=== PATIENT | female | born 2005 | race Hispanic/Latino ===

== ENCOUNTER 2024-11-01 09:18 | Emergency (ER) | payer SELFPAY ==
[~2024-11-01] VITALS: Ht 172.7 cm; Wt 102.1 kg
--- NOTE | 2024-11-01 10:08 | ERN ---
ED Note History of Present Illness Stated Complaint: ANXIETY Chief Complaint: Anxiety/Panic Attack Time Seen by MD: 09:23 Dictation: 19-year-old female with a history of type 2 diabetes on metformin presents to the ED for evaluation of shortness a breath onset [employer]. Patient reports fever, throat pain, body aches and headache, but denies any other associated symptoms at this time. Patient states it hurts to move."Patient mentioned she took NyQuil last night. Allergies: Coded Allergies: No Known Drug Allergies (Unverified Allergy, Intermediate, 11/01/24) Home Meds Active Scripts Naproxen (Naproxen) 250 Mg Tablet, 250 MG PO BID for 5 Days, #10 TAB Prov:NADIA MARTINEZ MD 11/01/24 Review of System Dictation Constitutional: Positive for body aches, fever Negative for chills and weight loss Eyes: Negative for injury, pain,redness, and discharge ENT: Positive for throat pain Negative for injury or swelling Cardiovascular: Negative for chest pain, palpitations, and edema Respiratory: Positive for shortness of breath negative for cough, and wheezing, Abdomen/GI: Negative for abdominal pain, nausea, vomiting, diarrhea, and constipation Back: Negative for injury and pain : Negative for injury, bleeding and discharge MS/Extremity: Negative for injury and deformity Skin: Negative for rash, and discoloration Neuro: Positive for headache Negative for weakness, numbness, tingling, and seizure Psych: Negative for suicide ideation, homicidal ideation, and hallucinations Initial Vital Sign VS Vital Signs Date Time Temp Pulse Resp B/P (MAP) Pulse Ox O2 Delivery O2 Flow Rate FiO2 11/01/24 12:05 98.8 89 18 138/65 99 Room Air* 0 21 Physical Exam Dictation General: awake, alert, NAD Head/Face: Normocephalic, atraumatic Eyes: PERRL, EOMI, vision at baseline ENT: oral cavity clear, TMs clear, nasal congestion Neck: Trachea midline, supple, no nuchal rigidity Cardiovascular: RRR, normal S1/S2, No MRGs, no JVD Respiratory: CTAB, no respiratory distress, No rales or wheezes Abdomen: Soft, non-tender, non-distended, normal bowel sounds, no guarding or rebound. Skin: Warm, dry, normal turgor, no rash MS/Extremity: Pulses equal, no cyanosis, neurovascular intact, FROM Neuro: COAx4, GCS 15, strength 5/5, CN 2-12 intact, normal cerebellar exam, normal gait, Psych: Normal behavior, mood, and affect normal Results (Laboratory/Radiology) Laboratory/Radiology Laboratory Tests Test 11/01/24 10:25 11/01/24 10:52 White Blood Count 8.2 K/uL (4.8-10.8) Red Blood Count 4.83 MIL/uL (4.00-5.50) Hemoglobin 13.4 g/dL (12.0-16.0) Hematocrit 41.5 % (36-48) Mean Corpuscular Volume 85.9 fL (80-100) Mean Corpuscular Hemoglobin 27.7 pg (27.0-33.0) Mean Corpuscular Hemoglobin Concent 32.3 g/dL (32.0-36.0) Red Cell Distribution Width 14.2 % (11.0-15.5) Platelet Count 194 K/uL (130-400) Mean Platelet Volume 11.9 fL (7.5-10.5) H Immature Granulocyte % (Auto) 0.4 % (0-1) Neutrophils (%) (Auto) 62.5 % (40.0-77.0) Lymphocytes (%) (Auto) 27.0 % (21.0-51.0) Monocytes (%) (Auto) 8.6 % (3.0-13.0) Eosinophils (%) (Auto) 1.0 % (0.0-8.0) Basophils (%) (Auto) 0.5 % (0.0-5.0) Neutrophils # (Auto) 5.1 K/uL (1.8-7.7) Lymphocytes # (Auto) 2.2 K/uL (1.0-4.8) Monocytes # (Auto) 0.7 K/uL (0.1-1.0) Eosinophils # (Auto) 0.08 K/uL (0.00-0.70) Basophils # (Auto) 0.04 K/uL (0.00-0.20) Absolute Immature Granulocyte (auto 0.03 K/uL (0-1) Nucleated Red Blood Cells 0.0 % (0.0-0.19) Sodium Level 138 mmol/L (136-145) Potassium Level 3.7 mmol/L (3.5-5.1) Chloride Level 103 mmol/L (101-111) Carbon Dioxide Level 28 mmol/L (21-32) Blood Urea Nitrogen 6 mg/dL (7-18) L Creatinine 0.8 mg/dL (0.5-1.0) Glomerular Filtration Rate Calc 108 mL/min (>90) Random Glucose 116 mg/dL (70-105) H Total Calcium 8.4 mg/dL (8.5-10.1) L Influenza Type A Antigen Negative For Type A Influenza Type B Antigen Negative For Type B SARS-CoV-2 Antigen (Rapid) PRESUMPTIVE NEGATIVE Group A Streptococcus Rapid negative (NEGATIVE) Labs Reviewed?: Yes X-RAY Comment: REASON: fever ORDERING PHYSICIAN: NADIA MARTINEZ MD PROCEDURE: CXR1VW - CHEST 1VW CHEST 1VW REASON: fever COMPARISON: None. FINDINGS: Single view of the chest was obtained. Lungs are clear. Heart size is normal. There is no pulmonary vascular congestion. Mediastinum and bony thorax appear unremarkable. IMPRESSION: 1. Normal single view chest x-ray. DICTATED BY: MADDIE SYKES MD DATE: 11/01/24 1127 ED Course ED Course Orders Procedure Category Date Status Time Covid19 (Sars Antigen LAB 11/01/24 Complete Rapid) 09:57 Influenza Type A & B, LAB 11/01/24 Complete Rapid 09:57 Chest 1vw RAD 11/01/24 Resulted 09:57 0.9%Nacl 1000ml (Ns PHA 11/01/24 Complete 1000ml) 10:00 Ketorolac PHA 11/01/24 Complete Tromethamine 15mg/Ml 10:00 Cbc With Differential LAB 11/01/24 Complete 09:57 Basic Metabolic Panel LAB 11/01/24 Complete 09:57 Rapid (Group A Strep) LAB 11/01/24 Complete 10:53 Current Medications Medications (Trade) Dose Ordered Sig/Gerardo Route PRN Reason Start Time Stop Time Status Last Admin Dose Admin Ketorolac Tromethamine (toRADol) 15 mg ONCE ONCE IV 11/01/24 10:00 11/01/24 10:01 DC 11/01/24 12:14 Sodium Chloride 1,000 ml @ 0 mls/hr ONCE ONCE IV 11/01/24 10:00 11/01/24 10:01 DC 11/01/24 12:14 Vital Signs Date Time Temp Pulse Resp B/P (MAP) Pulse Ox O2 Delivery O2 Flow Rate FiO2 11/01/24 12:11 98.8 88 20 161/62 100 Room Air 11/01/24 12:05 98.8 89 18 138/65 99 Room Air* 0 21 Medical Decision Making MDM MDM: Differential diagnosis: Viral syndrome, influenza, URI Risk of complication and/or morbidity or mortality of patient management: None Medications-Per medication reconciliation Need for hospitalization: Patient does not meet criteria for hospitalization. Need for emergency major/minor surgery: No There are no social concerns with this patient. Prescription drug management Prescriptions will include symptomatic care I independently interpreted the test that were performed, results were reviewed by me and considered findings on radiology if ordered. Medical management and examination interpretation discussions were had by me with other qualified healthcare professionals as indicated for the patient's care. DX & DISP Disposition: Discharge Departure Impression: Primary Impression: Acute URI Condition: Stable Scripts Naproxen (Naproxen) 250 Mg Tablet 250 MG PO BID for 5 Days, #10 TAB Prov: NADIA MARTINEZ MD 11/01/24 Referrals: SELF,REFERRAL (PCP) NADIA MARTINEZ MD Nov 01, 2024 10:08
[2024-11-01 11:01] LABS: BASOPHILS # (AUTO) 0.04 K/uL (0.00-0.20); BASOPHILS % (AUTO) 0.5 % (0.0-5.0); EOSINOPHILS # (AUTO) 0.08 K/uL (0.00-0.70); HEMATOCRIT 41.5 % (36-48); IMMATURE GRANULOCYTE ABSOLUTE 0.03 K/uL (0-1); LYMPHOCYTES # (AUTO) 2.2 K/uL (1.0-4.8); MEAN CORPUSCULAR HEMOGLOBIN 27.7 pg (27.0-33.0); MEAN CORPUSCULAR HGB CONC 32.3 g/dL (32.0-36.0); MEAN CORPUSCULAR VOLUME 85.9 fL (80-100); MONOCYTES # (AUTO) 0.7 K/uL (0.1-1.0); MONOCYTES % (AUTO) 8.6 % (3.0-13.0); NEUTROPHILS # (AUTO) 5.1 K/uL (1.8-7.7); NEUTROPHILS % (AUTO) 62.5 % (40.0-77.0); PLATELET COUNT (AUTO) 194 K/uL (130-400); RED BLOOD CELL COUNT(AUTO) 4.83 MIL/uL (4.00-5.50); RED CELL DISTRIBUTION WIDTH 14.2 % (11.0-15.5); WHITE BLOOD COUNT (AUTO) 8.2 K/uL (4.8-10.8)
[2024-11-01 11:10] LABS: CREATININE 0.8 mg/dL (0.5-1.0); POTASSIUM 3.7 mmol/L (3.5-5.1)
--- NOTE | 2024-11-01 11:30 | HMCIMG ---
CHEST 1VW REASON: fever COMPARISON: None. FINDINGS: Single view of the chest was obtained. Lungs are clear. Heart size is normal. There is no pulmonary vascular congestion. Mediastinum and bony thorax appear unremarkable. IMPRESSION: 1. Normal single view chest x-ray.
[2024-11-01] MEDS: 0.9%NACL 1000ML 1,000 ML IV ONE (12:14)
[2024-11-01] MEDS: ketOROlac 15MG/ML VIAL (15MG/ML) IV ONE (12:14)
[2024-11-01 12:15] LABS: COVID19 (SARS ANTIGEN RAPID) PRESUMPTIVE NEGATIVE (NEGATIVE); INFLUENZA TYPE A Negative For Type A (NEGATIVE); INFLUENZA TYPE B Negative For Type B (NEGATIVE)
[2024-11-01] MEDS ORDERED: NAPR-1196 PO (12:30)
[2024-11-01 12:51] VITALS: BP 131/62; PULSE 74; RESP 20; TEMP 98.7; O2SAT 100
== END 2024-11-01 13:29 | disposition home or self-care (01) ==
LOC: EDH 09:18
DX: J06.9 Acute upper respiratory infection, unspecified (principal); F41.0 Panic disorder [episodic paroxysmal anxiety]; Z20.822 Contact with and (suspected) exposure to COVID-19; Z79.899 Other long term (current) drug therapy
CPT/HCPCS: 99284; 96374; 71045; 96361; 87426; 80048; 85025; 87880; 87804 ×2; 36415; J1885; J7030